=== PATIENT | female | born 1965 | race African-American/Black ===

== ENCOUNTER 2021-09-27 04:43 | Emergency (ER) | payer MEDICAID ==
[~2021-09-27] VITALS: Ht 160 cm; Wt 99.0 kg
[2021-09-27 04:56] VITALS: BP 153/72
[2021-09-27 05:38] LABS: CLARITY URINE CLEAR (CLEAR); COLOR URINE YELLOW (YELLOW); KETONES URINE NEGATIVE (NEGATIVE); LEUKOCYTE ESTERASE URINE TRACE (NEGATIVE); NITRITE URINE NEGATIVE (NEGATIVE); OCCULT BLOOD URINE 3+ (NEGATIVE); PH URINE 5.5 (4.5-8.0); PROTEIN URINE NEGATIVE (NEGATIVE); SPECIFIC GRAVITY URINE 1.019 (1.005-1.030); UROBILINOGEN URINE 0.2 E.U./dL (0.2-1.0)
[2021-09-27] MEDS ORDERED: VISCOUS LIDOCAINE 2% 15 ML UDC PO STA (05:39)
[2021-09-27] MEDS ORDERED: MAGNESIUM/ALUMINUM HYDROXIDE/SIMETHICONE 30ML UDC PO STA (05:39)
[2021-09-27 05:57] LABS: BASOPHILS % 0.7 % (0.0-2.0); EOSINOPHILS % 0.5 % (0.0-5.0); HEMATOCRIT. 36.4 % (36.0-48.0); LYMPHOCYTES % 30.2 % (20.0-50.0); MEAN CORPUSCULAR VOLUME 85.2 fL (81.0-99.0); MEAN PLATELET VOLUME 8.5 fl (7.4-10.4); MONOCYTES % 7.6 % (2.0-8.0); PLATELET 261 x1000/uL (130-400); RED BLOOD CELL COUNT 4.28 mill/uL (4.2-5.4); RED CELL DISTRIBUTION WIDTH 14.2 % (11.6-14.6)
[2021-09-27 06:04] LABS: CHLORIDE 108 mEq/L (98-107)
[2021-09-27 06:08] LABS: ETHANOL BLOOD < 10 mg/dL
[2021-09-27 06:17] LABS: HCG SCREEN NEGATIVE
[2021-09-27] MEDS ORDERED: NITR-87 MT (07:24)
[2021-09-27] MEDS ORDERED: BACI1CAP13 MT (07:24)
[2021-09-27] MEDS ORDERED: NITROFURANTOIN 100MG M/M CAPSULE PO ONE (07:30)
[2021-09-28 14:34] LABS: *AMPHETAMINES SCREEN URINE NEGATIVE (NEGATIVE); *BENZODIAZEPINES SCREEN URINE NEGATIVE (NEGATIVE); *COCAINE SCREEN URINE NEGATIVE (NEGATIVE)
[2021-09-28 14:36] LABS: CANNABINOID URINE SCREEN NEGATIVE (NEGATIVE); OPIATES URINE SCREEN NEGATIVE (NEGATIVE); PHENCYCLIDINE URINE SCREEN NEGATIVE (NEGATIVE)
[2021-09-29 19:16] LABS: *BARBITURATES SCREEN URINE NEGATIVE (NEGATIVE); METHADONE URINE SCREEN NEGATIVE (NEGATIVE)
== END 2021-09-27 08:12 | disposition home or self-care (01) ==
LOC: ER 04:43
DX: N39.0 Urinary tract infection, site not specified (principal); K52.9 Noninfective gastroenteritis and colitis, unspecified; D25.9 Leiomyoma of uterus, unspecified; I10 Essential (primary) hypertension; Z20.822 Contact with and (suspected) exposure to COVID-19; Z87.828 Personal history of other (healed) physical injury and trauma; Z88.5 Allergy status to narcotic agent; Z88.6 Allergy status to analgesic agent
CPT/HCPCS: 36415; 71045; 74176; 80053; 80305; 80320; 81003; 83880; 84484; 84703; 85025; 87426; 93005; 99285; G0480

== ENCOUNTER 2022-02-08 01:00 | Emergency (ER) | payer MEDICAID ==
[~2022-02-08] VITALS: Ht 160 cm; Wt 98.1 kg
[~2022-02-08 01:00] MED LIST: BACI1CAP13 MT; NITR-87 MT
[2022-02-08 04:08] LABS: HEMATOCRIT 34.7 % (36.0-48.0); HEMOGLOBIN 11.5 g/dL (12.0-16.0); MEAN CORPUSCULAR HEMOGLOBIN 28.4 pg (28.0-32.0); MEAN CORPUSCULAR VOLUME 85.8 fL (81.0-99.0); PLATELET 257 x1000/uL (130-400); RED BLOOD CELL COUNT 4.04 mill/uL (4.2-5.4); RED CELL DISTRIBUTION WIDTH 14.1 % (11.6-14.6)
[2022-02-08 04:19] LABS: D-DIMER 0.37 mg/L FEU (<0.50); INR 0.9; PARTIAL THROMBOPLASTIN TIME 28.6 sec (23.4-31.0); PROTHROMBIN TIME 10.2 sec (9.6-11.0)
[2022-02-08 04:21] LABS: CHLORIDE 107 mEq/L (98-107)
[2022-02-08] MEDS ORDERED: IBUP-2029 MT (04:38)
[2022-02-08 05:12] VITALS: BP 122/77
== END 2022-02-08 05:12 | disposition home or self-care (01) ==
LOC: ER 01:00
DX: M79.661 Pain in right lower leg (principal); I10 Essential (primary) hypertension; Z88.6 Allergy status to analgesic agent; Z88.5 Allergy status to narcotic agent
CPT/HCPCS: 36415; 80053; 85027; 85379; 99283

== ENCOUNTER 2022-03-13 08:53 | Emergency (ER) | payer MEDICAID ==
[~2022-03-13] VITALS: Ht 157.5 cm; Wt 98.5 kg
[~2022-03-13 08:53] MED LIST changes: +IBUP-2029 MT
[2022-03-13 09:04] VITALS: BP 152/82
== END 2022-03-13 11:45 | disposition home or self-care (01) ==
LOC: ER 08:53
DX: R13.10 Dysphagia, unspecified (principal); I10 Essential (primary) hypertension; Z88.6 Allergy status to analgesic agent; Z88.5 Allergy status to narcotic agent; Z88.8 Allergy status to other drugs, medicaments and biological substances
CPT/HCPCS: 70360; 71045; 81025; 93005; 99284

== ENCOUNTER 2022-04-25 00:59 | Emergency (ER) | payer MEDICAID ==
[~2022-04-25] VITALS: Ht 157.5 cm; Wt 99.0 kg
[2022-04-25 01:17] VITALS: BP 150/75
[2022-04-25] MEDS ORDERED: CEPH500C2 MT (04:55)
[2022-04-25] MEDS ORDERED: IBUP-2029 MT (04:55)
[2022-04-25] MEDS ORDERED: IBUPROFEN 800MG TABLET PO ONE (05:00)
== END 2022-04-25 05:33 | disposition home or self-care (01) ==
LOC: ER 00:59
DX: S60.011A Contusion of right thumb without damage to nail, initial encounter (principal); I10 Essential (primary) hypertension; Z88.5 Allergy status to narcotic agent; Z88.6 Allergy status to analgesic agent; W22.8XXA Striking against or struck by other objects, initial encounter; Y93.89 Activity, other specified; Y92.018 Other place in single-family (private) house as the place of occurrence of the external cause
CPT/HCPCS: 73130; 99283

== ENCOUNTER 2024-11-15 10:10 | Emergency (ER) | payer MEDICAID, OTHER ==
[~2024-11-15] VITALS: Ht 167.6 cm; Wt 94.3 kg
[~2024-11-15 10:10] MED LIST changes: +CEPH500C2 MT
[2024-11-15 10:45] VITALS: O2SAT 99
[2024-11-15] MEDS: KETOROLAC 30MG/ML VIAL IM STA (11:26)
[2024-11-15 12:01] LABS: BASOPHILS % 0.3 % (0.0-2.0); EOSINOPHILS % 0.6 % (0.0-5.0); HEMATOCRIT. 35.7 % (36.0-48.0); HEMOGLOBIN. 11.6 g/dL (12.0-16.0); LYMPHOCYTES % 34.2 % (20.0-50.0); MEAN CORPUSCULAR HEMOGLOBIN 28.1 pg (28.0-32.0); MEAN CORPUSCULAR HGB CONC 32.5 g/dL (31.0-37.0); MEAN CORPUSCULAR VOLUME 86.3 fL (81.0-99.0); MEAN PLATELET VOLUME 8.5 fl (7.4-10.4); MONOCYTES % 8.2 % (2.0-8.0); NEUTROPHILS % 56.7 % (40.0-76.0); PLATELET 243 x1000/uL (130-400); RED BLOOD CELL COUNT 4.13 mill/uL (4.2-5.4); RED CELL DISTRIBUTION WIDTH 13.9 % (11.6-14.6); WHITE BLOOD COUNT 4.7 x1000/uL (4.5-11.0)
[2024-11-15 12:14] LABS: CHLORIDE 107 mEq/L (98-107); POTASSIUM 3.8 mEq/L (3.5-5.1); SODIUM 142 mEq/L (136-145)
[2024-11-15 12:15] LABS: CALCIUM 9.9 mg/dL (8.7-10.4); CARBON DIOXIDE 30 mEq/L (21-32)
[2024-11-15 12:20] LABS: CREATININE 0.6 mg/dL (0.6-1.0); GLUCOSE 103 mg/dL (70-105); UREA NITROGEN BLOOD 11 mg/dL (9-23)
[2024-11-15 13:29] LABS: CLARITY URINE CLEAR (CLEAR); COLOR URINE YELLOW (YELLOW); GLUCOSE URINE NEGATIVE (NEGATIVE); KETONES URINE NEGATIVE (NEGATIVE); LEUKOCYTE ESTERASE URINE TRACE (NEGATIVE); NITRITE URINE NEGATIVE (NEGATIVE); OCCULT BLOOD URINE TRACE (NEGATIVE); PH URINE 5.5 (4.5-8.0); PROTEIN URINE NEGATIVE (NEGATIVE); SPECIFIC GRAVITY URINE 1.016 (1.005-1.030); UROBILINOGEN URINE 0.2 E.U./dL (0.2-1.0)
[2024-11-15] MEDS ORDERED: IBUP-2029 MT (13:53)
[2024-11-15 13:59] LABS: BACTERIA URINE TRACE; SQUAMOUS EPITHELIAL CELL URINE 3+ /lpf (RARE/1+)
[2024-11-15 14:00] VITALS: BP 135/82; PULSE 76; RESP 18; TEMP 36.7; O2SAT 98
[2024-11-15 14:00] LABS: MUCUS URINE TRACE /lpf (< = 2+); RBC URINE NONE SEEN /hpf (0-2); WBC URINE 0-2 /hpf (0-2)
== END 2024-11-15 14:01 | disposition home or self-care (01) ==
LOC: ER 12:22
DX: M54.50 Low back pain, unspecified (principal); I10 Essential (primary) hypertension; M51.372 Other intervertebral disc degeneration, lumbosacral region with discogenic back pain and lower extremity pain; Z88.5 Allergy status to narcotic agent
CPT/HCPCS: 80048; 81003; 85025; 36415; 96372; 99283; J1885; Z7610 ×2